=== PATIENT | male | born 1960 | race Caucasian/White ===

== ENCOUNTER 2021-12-20 06:33 | Emergency (ER) | payer OTHER, SELFPAY ==
[2021-12-20 06:40] VITALS: BP 153/82; PULSE 90; RESP 18; TEMP 37; O2SAT 97
--- NOTE | 2021-12-20 06:51 | ED.GENADUL_ITS ---
Discharge Plan Disposition Patient Disposition: HOME Condition: Stable Discharge Details Clinical Impression: Acute low back pain Primary Care Provider: Nate Bañuelos ED Provider: Ezra Fonseca Home Meds and New Rx's Prescriptions: New cyclobenzaprine 10 mg tablet 10 mg PO TID PRNQty: 20 0RF prednisone 20 mg tablet 60 mg PO DAILY 4 Days Qty: 12 0RF Continued ibuprofen [Advil] 200 mg Tablet 200 mg PO Q6H PRN Discharge Instructions Instructions: Low Back Strain (ED) Additional Instructions: you likely caused a strain in the muscles in your back. There is a possibility of a slipped disc but a majority of these heal on their own and don't require intervention you can take tylenol and ibuprofen as needed, follow dosing instructions on the packaging if you still have pain in a week follow up with your primary care provider or express care if you feel more ill, have fevers, difficulty urinating or severe worsening pain return to the emergency department Stand Alone Forms: Work Release Medical Decision Making 60 yo male who denies chronic medical problems comes in with low back pain. He states he woke up feeling well and went to work. He bent down to lift some wood and had sudden low back pain locazlied to the right lower back. Denies trauma, no falls. He came here immediately, hasn't taken anything for the pain. He denies any fevers, chills, weakness, numbness. He arrives stable speaking in full sentences, caox4. He localizes the pain to the right lower back, no midline back pain, no rashes, no deformities noted. He has no saddle anesthesia, normal distal sensation and pulses and normal reflexes. No abdominal tenderness. Suspect back strain vs muscle spasm vs disc herniation. No systemic symptoms and pain was sudden so doubt entities such as osteomyelitis, and history and physical also not consistent with cauda equina or spinal epidural abscess. Will start him on short course of prednisone and also advised prn nsaids and tylenol. Will also have him try lidocaine patches and muscle relaxers, advised not to drive or drink alcohol with this. Also advised to follow up with his pcp if not improving in a week and return precautions given Differential Diagnosis Differential Diagnosis: back strain, disc herniation, muscle spasm HPI General Mode of arrival: ambulatory . Date/Time Provider Initiated Documentation: 12/20/21 06:34 . Limitations to Documentation: no limitations . Information obtained by: patient . History of Present Illness 60 year old M presents to the emergency department with the chief complaint of low back pain, described as moderate, with intensity rated at 6. Quality is described as sharp, and is localized to the back. Patient reports no radiation. Patient started experiencing this hour(s) (1) and it has been constant. Rest improves symptom(s), Movement worsens symptoms . Patient notes no other symptoms.. Patient did receive the following treatments prior to arrival, none Related Data Home Medications Medication Instructions Recorded Confirmed cyclobenzaprine 10 mg tablet 10 mg PO TID PRN #20 tabs 12/20/21 ibuprofen 200 mg tablet (Advil) 200 mg PO Q6H PRN 12/20/21 12/20/21 prednisone 20 mg tablet 60 mg PO DAILY 4 days #12 tabs 12/20/21 Previous Rx's Medication Instructions Recorded cyclobenzaprine 10 mg tablet 10 mg PO TID PRN #20 tabs 12/20/21 prednisone 20 mg tablet 60 mg PO DAILY 4 days #12 tabs 12/20/21 Allergies Allergy/AdvReac Type Severity Reaction Status Date / Time No Known Allergies Allergy Unverified 12/20/21 06:44 General Stated Complaint: Nk/Back Pain WILL: 4 Review of Systems All systems reviewed & are unremarkable except as noted in HPI and below Constitutional Constitutional: Denies chills, Denies fever(s) and Denies weakness Cardiovascular Cardiovascular: Denies chest pain and Denies dyspnea Respiratory Respiratory: Denies cough and Denies dyspnea Gastrointestinal Gastrointestinal: Denies abdominal pain, Denies nausea and Denies vomiting Neurologic Neurologic: Denies weakness PFSH All Active Problems (Updated 12/20/21 @ 06:51 by Ezra Fonseca MD) Acute low back pain (Acute) Social History Smoking risk assessment performed?: No Exam Const General: no acute distress Orientation: alert HENMT Head: normal to inspection Ears: external ears normal General nose exam: external nose normal Mouth: moist mucous membranes Eyes General: appearance normal, both eyes and all related structures Neck Neck: normal visual inspection Resp Effort & Inspection: normal respiratory effort and able to speak in complete sentences Cardio Rate: regular rate Back/Spine/Pelvis Back: no CVA tenderness Skin General skin exam: no rashes or lesions noted Neuro General: patient alert and patient oriented x3 Extrem General: normal to inspection Psych Mental Status: mental status grossly normal Course Vital Signs Vital signs: Vital Signs Temperature 37.0 C 12/20/21 06:40 Pulse 90 12/20/21 06:40 Respiratory Rate 18 12/20/21 06:40 Blood Pressure 153/82 H 12/20/21 06:40 Pulse Oximetry 97 12/20/21 06:40 Temperature 37.0 C 12/20/21 06:40 Temperature Source Skin 12/20/21 06:40 Pulse 90 12/20/21 06:40 Respiratory Rate 18 12/20/21 06:40 Blood Pressure 153/82 H 12/20/21 06:40 Blood Pressure Position Sitting 12/20/21 06:40 Pulse Oximetry 97 12/20/21 06:40 Oxygen Delivery Method Room Air 12/20/21 06:40 Oxygen Flow Rate 0 12/20/21 06:40 Pain Level 8 12/20/21 06:40
[2021-12-20] MEDS: predniSONE 20 MG TAB 60 MG PO (06:57)
[2021-12-20] MEDS: Cyclobenzaprine 10 MG TAB, 3 TABS/BTL PO (06:57)
[2021-12-20] MEDS: Lidocaine 5% Patch 1 PATCH TP (06:57)
[2021-12-20] MEDS: Ibuprofen 600 MG TAB PO (06:57)
[2021-12-20 07:07] VITALS: BP 153/82; PULSE 90; RESP 18; TEMP 37; O2SAT 97
== END 2021-12-20 09:11 | disposition home or self-care (01) ==
PROVIDERS: Emergency Provider Emergency Medicine; PCP Internal Medicine
DX: G89.11 Acute pain due to trauma (principal); M54.50 Low back pain, unspecified; X50.1XXA Overexertion from prolonged static or awkward postures, initial encounter
CPT/HCPCS: 99283; 99284; J7512